=== PATIENT | male | born 1995 | race Caucasian/White ===

== ENCOUNTER 2017-05-19 14:28 | Emergency (ER) | payer OTHER ==
[~2017-05-19] VITALS: Ht 160 cm; Wt 90.7 kg
[2017-05-19 14:33] VITALS: BP 140/91
--- NOTE | 2017-05-19 15:06 | NUR ---
URINE SAMPLE COLLECTED SENT TO LAB
[2017-05-19 15:11] LABS: BILIRUBIN,URINE Negative (NEGATIVE); BLOOD, URINE Negative Ery/uL (NEGATIVE); KETONES,URINE Negative (NEGATIVE); LEUKOCYTE ESTERASE ,URINE Negative (NEGATIVE); NITRITE, URINE Negative (NEGATIVE); PROTEIN,URINE Negative (NEGATIVE); UGLUCOSE Negative (NEGATIVE)
[2017-05-19 15:13] LABS: APPEARANCE,URINE Hazy (CLEAR); COLOR,URINE Dark Yellow (YELLOW)
[2017-05-19 15:17] LABS: BACTERIA,URINE None seen /HPF (None Seen); RBC,URINE 0-2 /HPF (0-2); SQUAMOUS EPITHELIAL CELL,UR Few /HPF (None Seen); WBC,URINE 0-3 /HPF (0-3)
[2017-05-19] MEDS ORDERED: DOXYCYCLINE HYCLATE (100 MG) 100 MG TABLET PO STA (16:25)
[2017-05-19] MEDS ORDERED: LIDOCAINE 1% INJ 50 ML MDV IJ STA (16:25)
[2017-05-19] MEDS ORDERED: CEFTRIAXONE 1 G VIAL IM ONE (16:30)
[2017-05-19] MEDS ORDERED: DOXYCYCLINE HYCLATE (100 MG) 100 MG TABLET ONE (16:32)
[2017-05-19] MEDS ORDERED: LIDOCAINE /MPF 1% VIAL 5 ML VIAL ONE (16:33)
[2017-05-19] MEDS ORDERED: CEFTRIAXONE 500 MG VIAL ONE (16:33)
[2017-05-21 15:11] LABS: *NEISSERIA GONORRHOEAE NAA Negative (Negative); CHLAMYDIA TRACHOMATIS NAA Negative (Negative)
== END 2017-05-19 16:47 | disposition home or self-care (01) ==
LOC: ER 14:30
DX: N45.1 Epididymitis (principal)
CPT/HCPCS: 76870; 81001; 87086; 87491; 87591; 96372; 99285; A4606; J0696; J3490 ×2; Z7610; 81000-TC